=== PATIENT | male | born 1955 | race Caucasian/White ===

== ENCOUNTER → 2017-07-11 | Outpatient (CLI) | payer OTHER ==
[~2017-07-11] MED LIST: None per pt
[2017-07-11 12:21] LABS: HEMATOCRIT 49.7 % (39.2-51.8); HEMOGLOBIN 16.7 g/dL (13.7-18.0); WHITE BLOOD COUNT 9.8 x10^3/uL (3.4-10)
[2017-07-11 12:32] LABS: BLOOD UREA NITROGEN 35 mg/dL (7-18)
== END | disposition home or self-care (01) ==
LOC: STAR 11:08
PROVIDERS: ATTEND Neurological Surgery
DX: Z01.818 Encounter for other preprocedural examination (principal); M51.37 Other intervertebral disc degeneration, lumbosacral region; M51.36 Other intervertebral disc degeneration, lumbar region; R79.1 Abnormal coagulation profile
CPT/HCPCS: 36415; 71020; 80048; 81003; 85025; 85610; 85730; 93005

== ENCOUNTER → 2017-07-11 | Outpatient (CLI) | payer OTHER ==
[2017-07-12 06:07] LABS: % FREE PROSTATE SPECIFIC AG 23.6 % (.)
== END | disposition home or self-care (01) ==
LOC: LAB 12:20
PROVIDERS: ATTEND Emergency Medicine Emergency Medical Services
DX: Z12.5 Encounter for screening for malignant neoplasm of prostate (principal)
CPT/HCPCS: 36415; 84153; 84154; G0103

== ENCOUNTER 2017-07-20 07:11 | Inpatient (IN) | payer OTHER ==
[~2017-07-20] VITALS: Ht 177.8 cm; Wt 91.4 kg
[2017-07-20 08:04] VITALS: BP 133/84
[2017-07-20] MEDS ORDERED: KETAMINE 10 MG/ML, 20ML ONE (08:18)
[2017-07-20] MEDS ORDERED: FENTANYL PF 100 MCG/2ML ONE ×2 (08:18→12:11)
[2017-07-20] MEDS ORDERED: HYDROmorphone 2 MG/ML, 1ML ONE ×3 (08:18→12:06)
[2017-07-20] MEDS ORDERED: MIDAZOLAM 1 MG/ML, 2ML ONE (08:18)
[2017-07-20] MEDS ORDERED: REMIFENTANIL 2 MG ONE (08:19)
[2017-07-20] MEDS ORDERED: HEPARIN 1,000 UNITS/ML, 30ML ONE (08:51)
[2017-07-20] MEDS ORDERED: SUCCINYLCHOLINE 20 MG/ML, 10ML ONE (09:25)
[2017-07-20] MEDS ORDERED: CEFAZOLIN 1,000 MG ONE (09:25)
[2017-07-20] MEDS ORDERED: PROPOFOL 10 MG/ML, 20ML ONE (09:25)
[2017-07-20] MEDS ORDERED: PROPOFOL 10 MG/ML, 50ML ONE (09:25)
[2017-07-20] MEDS ORDERED: DEXAMETHASONE 4 MG/ML, 1ML ONE (09:25)
[2017-07-20] MEDS ORDERED: ROCURONIUM 10 MG/ML ONE (09:25)
[2017-07-20] MEDS ORDERED: ONDANSETRON 2MG/ML, 2ML ONE (09:25)
[2017-07-20] MEDS ORDERED: ACETAMINOPHEN 325 MG TABLET PO PRN ×2 (11:00→13:00)
[2017-07-20] MEDS ORDERED: FENTANYL PF 100 MCG/2ML IV PRN ×2 (11:00→13:00)
[2017-07-20] MEDS ORDERED: MEPERIDINE/PF 25MG/0.5ML IVPush PRN ×2 (11:00→13:00)
[2017-07-20] MEDS ORDERED: OXYcodone 5 MG/5 ML ORAL.SOL UDC PO PRN ×2 (11:00→13:00)
[2017-07-20] MEDS ORDERED: PROMETHAZINE 25 MG/ML, 1ML IV PRN ×2 (11:00→13:00)
[2017-07-20] MEDS ORDERED: BISACODYL 10 MG SUPP PR PRN (11:30)
[2017-07-20] MEDS ORDERED: SENNA/DOCUSATE TABLET PO PRN (11:30)
[2017-07-20] MEDS ORDERED: PROMETHAZINE 25 MG/ML, 1ML IM PRN (11:30)
[2017-07-20] MEDS ORDERED: LABETALOL 5MG/ML, 20ML IVPush PRN (11:30)
[2017-07-20] MEDS ORDERED: ONDANSETRON 2MG/ML, 2ML IVPush PRN (11:30)
[2017-07-20] MEDS ORDERED: DIPHENHYDRAMINE 50 MG/ML, 1ML IM PRN (11:30)
[2017-07-20] MEDS ORDERED: DIPHENHYDRAMINE 50 MG/ML, 1ML IVPush PRN (11:30)
[2017-07-20] MEDS ORDERED: PHARMACY MAY ADJ FOR RENAL FX MC PRN (11:30)
[2017-07-20] MEDS ORDERED: DIPHENHYDRAMINE 50 MG CAPSULE PO PRN (11:30)
[2017-07-20] MEDS: HYDROmorphone 1 MG/ML, 1ML IV PRN ×8 (11:40→12:30)
[2017-07-20] MEDS ORDERED: METHOCARBAMOL 750 MG TABLET ONE (12:06)
[2017-07-20] MEDS: METHOCARBAMOL 750 MG TABLET PO PRN ×2 (12:08→20:17)
[2017-07-20] MEDS ORDERED: morphine SULFATE 10 MG/ML, 1ML ONE (12:27)
[2017-07-20] MEDS ORDERED: morphine SULFATE 10 MG/ML, 1ML IV PRN (12:30)
[2017-07-20] MEDS: D5%-0.9% NACL+KCL 20MEQ 1,000 ML IV SCH ×2 (13:00→23:00)
[2017-07-20] MEDS: HYDROcodone/APAP 5/325 TABLET PO PRN (13:59)
[2017-07-20 14:35] VITALS: BP 175/89
[2017-07-20] MEDS: OXYcodone/APAP 5/325MG TABLET PO PRN ×2 (17:47→22:05)
[2017-07-20] MEDS: CEFAZOLIN PMX 1GM/50ML 50 ML IVPB SCH (17:48)
[2017-07-20 18:36] VITALS: BP 191/77
[2017-07-20] MEDS: morphine SULFATE 10 MG/ML, 1ML IVPush PRN (18:40)
[2017-07-20 20:17] VITALS: BP 154/91
[2017-07-20] MEDS: SODIUM CHLORIDE FLUSH 10ML SYR IVF SCH (22:04)
[2017-07-21] MEDS: CEFAZOLIN PMX 1GM/50ML 50 ML IVPB SCH (01:48)
[2017-07-21] MEDS: OXYcodone/APAP 5/325MG TABLET PO PRN ×5 (02:11→19:27)
[2017-07-21 02:14] VITALS: BP 141/84
[2017-07-21 05:07] LABS: BLOOD UREA NITROGEN 16 mg/dL (7-18)
[2017-07-21] MEDS: METHOCARBAMOL 750 MG TABLET PO PRN ×3 (05:07→21:13)
[2017-07-21] MEDS ORDERED: ENOXAPARIN 40 MG/0.4 ML SQ ONE (06:00)
[2017-07-21] MEDS: CEPHALEXIN 500 MG CAPSULE PO SCH ×4 (06:01→21:09)
[2017-07-21 08:21] VITALS: BP 149/77
[2017-07-21] MEDS: D5%-0.9% NACL+KCL 20MEQ 1,000 ML IV SCH ×2 (09:00→19:00)
[2017-07-21] MEDS: HYDROcodone/APAP 5/325 TABLET PO PRN (10:30)
[2017-07-21] MEDS: SODIUM CHLORIDE FLUSH 10ML SYR IVF SCH ×2 (10:31→21:10)
[2017-07-21] MEDS: SIMETHICONE 125 MG CHEW TAB PO SCH ×4 (11:00→21:09)
[2017-07-21 11:08] LABS: HEMOGLOBIN 15.8 g/dL (13.7-18.0); WHITE BLOOD COUNT 12.5 x10^3/uL (3.4-10)
[2017-07-21] MEDS: METOCLOPRAMIDE 5 MG/ML, 2ML IVPush SCH ×2 (11:56→18:13)
[2017-07-21 13:39] VITALS: BP 135/73
[2017-07-21] MEDS: morphine SULFATE 10 MG/ML, 1ML IVPush PRN ×2 (18:13→22:13)
[2017-07-21 21:04] VITALS: BP 160/93
[2017-07-22] MEDS: METOCLOPRAMIDE 5 MG/ML, 2ML IVPush SCH ×4 (00:06→18:00)
[2017-07-22] MEDS: OXYcodone/APAP 5/325MG TABLET PO PRN ×4 (00:06→21:33)
[2017-07-22] MEDS: morphine SULFATE 10 MG/ML, 1ML IVPush PRN ×2 (00:11→11:28)
[2017-07-22 03:48] VITALS: BP 156/82
[2017-07-22] MEDS: D5%-0.9% NACL+KCL 20MEQ 1,000 ML IV SCH ×2 (03:52→15:00)
[2017-07-22 05:20] LABS: BLOOD UREA NITROGEN 16 mg/dL (7-18)
[2017-07-22] MEDS: CEPHALEXIN 500 MG CAPSULE PO SCH ×3 (05:23→16:00)
[2017-07-22] MEDS: METHOCARBAMOL 750 MG TABLET PO PRN ×2 (05:23→19:43)
[2017-07-22] MEDS: SIMETHICONE 125 MG CHEW TAB PO SCH ×4 (06:44→21:33)
[2017-07-22 07:40] VITALS: BP 140/81
[2017-07-22] MEDS: SODIUM CHLORIDE FLUSH 10ML SYR IVF SCH ×2 (07:44→21:35)
[2017-07-22] MEDS ORDERED: morphine SULFATE 10 MG/ML, 1ML IV PRN (12:00)
[2017-07-22] MEDS ORDERED: ONDANSETRON 2MG/ML, 2ML IVPush PRN (12:00)
[2017-07-22] MEDS ORDERED: OXYcodone 5 MG/5 ML ORAL.SOL UDC PO PRN (12:00)
[2017-07-22] MEDS ORDERED: HYDROcodone/APAP 7.5-325MG/15ML UDC PO PRN (12:00)
[2017-07-22] MEDS ORDERED: ACETAMINOPHEN 325 MG TABLET PO PRN (12:00)
[2017-07-22] MEDS ORDERED: PROPOFOL 10 MG/ML, 50ML ONE (14:42)
[2017-07-22] MEDS ORDERED: ROCURONIUM 10 MG/ML ONE (14:42)
[2017-07-22] MEDS ORDERED: LABETALOL 5MG/ML 40ML VIAL ONE (14:42)
[2017-07-22] MEDS ORDERED: SUCCINYLCHOLINE 20 MG/ML, 10ML ONE (14:42)
[2017-07-22] MEDS ORDERED: EPHEDRINE 50 MG/ML, 1ML ONE (14:42)
[2017-07-22] MEDS ORDERED: CEFAZOLIN 1,000 MG ONE (14:42)
[2017-07-22] MEDS ORDERED: DEXAMETHASONE 4 MG/ML, 1ML ONE (14:42)
[2017-07-22] MEDS ORDERED: PROPOFOL 10 MG/ML, 20ML ONE (14:42)
[2017-07-22] MEDS ORDERED: PHENYLEPHRINE 10 MG/ML ONE (14:42)
[2017-07-22] MEDS ORDERED: HYDROmorphone 2 MG/ML, 1ML ONE (17:09)
[2017-07-22] MEDS ORDERED: FENTANYL PF 100 MCG/2ML ONE (17:09)
[2017-07-22] MEDS ORDERED: OXYcodone 5 MG/5 ML ORAL.SOL UDC ONE (17:10)
[2017-07-22] MEDS: HYDROmorphone 1 MG/ML, 1ML IV PRN ×4 (17:13→17:37)
[2017-07-22] MEDS: FENTANYL PF 100 MCG/2ML IV PRN ×2 (17:23→17:46)
[2017-07-22 18:20] VITALS: BP 121/55
[2017-07-22 20:50] VITALS: BP 138/76
[2017-07-22] MEDS: CEFAZOLIN PMX 1GM/50ML 50 ML IVPB SCH (21:34)
[2017-07-23 00:13] VITALS: BP 135/73
[2017-07-23] MEDS: D5%-0.9% NACL+KCL 20MEQ 1,000 ML IV SCH ×3 (00:42→21:00)
[2017-07-23] MEDS: METOCLOPRAMIDE 5 MG/ML, 2ML IVPush SCH ×4 (01:41→19:48)
[2017-07-23] MEDS: OXYcodone/APAP 5/325MG TABLET PO PRN ×6 (01:42→21:35)
[2017-07-23 03:35] VITALS: BP 121/61
[2017-07-23] MEDS: METHOCARBAMOL 750 MG TABLET PO PRN ×4 (03:57→23:25)
[2017-07-23] MEDS: CEFAZOLIN PMX 1GM/50ML 50 ML IVPB SCH ×3 (05:29→21:01)
[2017-07-23 06:18] LABS: BLOOD UREA NITROGEN 19 mg/dL (7-18)
[2017-07-23] MEDS: SIMETHICONE 125 MG CHEW TAB PO SCH ×4 (06:48→19:46)
[2017-07-23] MEDS: SODIUM CHLORIDE FLUSH 10ML SYR IVF SCH ×2 (07:14→21:01)
[2017-07-23 08:18] VITALS: BP 123/74
[2017-07-23] MEDS: DEXAMETHASONE 4 MG/ML, 1ML IVPush SCH ×2 (13:43→19:36)
[2017-07-23 15:21] VITALS: BP_SYST 109; BP_SYST 136; BP_DIAS 61; BP_DIAS 81
[2017-07-23] MEDS: MAGNESIUM HYDROXIDE 8%, 30ML UDC PO PRN (15:58)
[2017-07-23 21:01] VITALS: BP 133/77
[2017-07-24] MEDS: DEXAMETHASONE 4 MG/ML, 1ML IVPush SCH (01:28)
[2017-07-24] MEDS: METOCLOPRAMIDE 5 MG/ML, 2ML IVPush SCH ×4 (01:28→22:33)
[2017-07-24] MEDS: OXYcodone/APAP 5/325MG TABLET PO PRN ×6 (01:29→22:32)
[2017-07-24 02:15] VITALS: BP 137/78
[2017-07-24] MEDS: CEFAZOLIN PMX 1GM/50ML 50 ML IVPB SCH ×3 (05:01→22:30)
[2017-07-24] MEDS: METHOCARBAMOL 750 MG TABLET PO PRN ×3 (05:40→18:19)
[2017-07-24 06:08] LABS: BLOOD UREA NITROGEN 21 mg/dL (7-18)
[2017-07-24] MEDS: D5%-0.9% NACL+KCL 20MEQ 1,000 ML IV SCH ×2 (07:00→16:46)
[2017-07-24] MEDS: SODIUM CHLORIDE FLUSH 10ML SYR IVF SCH ×2 (09:00→22:31)
[2017-07-24 09:35] VITALS: BP 121/73
[2017-07-24] MEDS: SIMETHICONE 125 MG CHEW TAB PO SCH ×4 (09:45→22:31)
[2017-07-24 14:00] VITALS: BP 126/78
[2017-07-24] MEDS: MAGNESIUM HYDROXIDE 8%, 30ML UDC PO PRN (15:43)
[2017-07-24 21:36] VITALS: BP 120/70
[2017-07-25] MEDS: METHOCARBAMOL 750 MG TABLET PO PRN ×2 (00:33→06:15)
[2017-07-25] MEDS: OXYcodone/APAP 5/325MG TABLET PO PRN ×3 (02:32→10:19)
[2017-07-25] MEDS: D5%-0.9% NACL+KCL 20MEQ 1,000 ML IV SCH (03:00)
[2017-07-25 04:54] VITALS: BP 134/72
[2017-07-25] MEDS: CEFAZOLIN PMX 1GM/50ML 50 ML IVPB SCH (06:15)
[2017-07-25] MEDS: METOCLOPRAMIDE 5 MG/ML, 2ML IVPush SCH (06:16)
[2017-07-25 08:10] VITALS: BP 131/69
[2017-07-25] MEDS: SODIUM CHLORIDE FLUSH 10ML SYR IVF SCH (09:00)
[2017-07-25] MEDS: SIMETHICONE 125 MG CHEW TAB PO SCH (09:19)
[2017-07-25] MEDS ORDERED: OXYC-302 PO (09:38)
[2017-07-25] MEDS ORDERED: METH750T87 PO (09:39)
[2017-07-25] MEDS ORDERED: DOXY100T PO (09:40)
== END 2017-07-25 10:48 | disposition home or self-care (01) | DRG 455 ==
LOC: 4NOR 07:11 → DCLOUNGE 07-25 10:32
PROVIDERS: ADMIT Neurological Surgery; ATTEND Neurological Surgery
PROC: 0SG00A1 (ICD-10-PCS; 2017-07-22)
PROC: 0SB20ZZ Excision of Lumbar Vertebral Disc, Open Approach (ICD-10-PCS; 2017-07-22)
PROC: 0SB40ZZ Excision of Lumbosacral Disc, Open Approach (ICD-10-PCS; 2017-07-22)
PROC: 0SG30A0 Fusion of Lumbosacral Joint with Interbody Fusion Device, Anterior Approach, Anterior Column, Open Approach (ICD-10-PCS; 2017-07-22)
PROC: 0SG30A1 (ICD-10-PCS; 2017-07-22)
PROC: 4A11X4G Monitoring of Peripheral Nervous Electrical Activity, Intraoperative, External Approach (ICD-10-PCS; 2017-07-22)
PROC: 0SG00A0 Fusion of Lumbar Vertebral Joint with Interbody Fusion Device, Anterior Approach, Anterior Column, Open Approach (ICD-10-PCS; principal; 2017-07-22 12:00)
DX: M48.06 Spinal stenosis, lumbar region (principal); G89.29 Other chronic pain; M25.78 Osteophyte, vertebrae; M43.16 Spondylolisthesis, lumbar region; M51.16 Intervertebral disc disorders with radiculopathy, lumbar region; M51.17 Intervertebral disc disorders with radiculopathy, lumbosacral region; Z98.1 Arthrodesis status; Z98.52 Vasectomy status
CPT/HCPCS: 36415; 72100; 72131; 74000; 80048; 82040; 85025; 86850; 86900; 86923; C1713; J0690; J1100; J1170; J1644; J1650; J2250; J2405; J2704; J3010; J3490; C1762; C1781; J0330; J2270; J2370; J2765; J3480